=== PATIENT | female | born 1945 | race Caucasian/White ===

== ENCOUNTER → 2016-10-07 | Outpatient (CLI) | payer MEDICARE, BC ==
--- NOTE | 2016-10-07 11:34 | XR ---
EXAMINATION TYPE: XR chest 2V DATE OF EXAM: 10/07/2016 11:17 AM COMPARISON: 10/02/2012 TECHNIQUE: PA and lateral views submitted. HISTORY: Cough, tobacco use, yearly physical FINDINGS: The lungs are clear and there is no pneumothorax, pleural effusion, or focal pneumonia. Chronic rib deformities are seen with biapical pleural thickening greater on the right. Hyperinflation suggests COPD and there are changes of chronic interstitial lung disease. Degenerative change of the spine. Hearn bsegmental changes at the lung base. IMPRESSION: 1. No acute process. Findings are suggestive of COPD and chronic interstitial lung disease. 2. Subsegmental changes posteriorly at the lung base suggestive of atelectasis. Infiltrates less like ly correlate clinically.
== END | disposition home or self-care (01) ==
LOC: RADXRMAIN 10:38
PROVIDERS: ATTEND Physician Assistant
DX: Z87.891 Personal history of nicotine dependence (principal)
CPT/HCPCS: 71020

== ENCOUNTER → 2017-03-03 | Outpatient (CLI) | payer MEDICARE, BC ==
--- NOTE | 2017-03-04 07:32 | ECHOF ---
Referral Reason:R60.9 Edema MEASUREMENTS -------- HEIGHT: 144.8 cm WEIGHT: 84.4 kg BP: RVIDd: 3.3 cm (< 3.3) IVSd: 1.1 cm (0.6 - 1.1) LVIDd: 4.4 cm (3.9 - 5.3) LVPWd: 1.2 cm (0.6 - 1.1) IVSs: 1.9 cm LVIDs: 2.8 cm LVPWs: 1.4 cm LAESV Index (A-L): 29.51 ml/m Ao Diam: 3.5 cm (2.0 - 3.7) AV Cusp: 1.9 cm (1.5 - 2.6) LA Diam: 3.4 cm (2.7 - 3.8) MV EXCURSION: 14.577 mm (> 18.000) MV EF SLOPE: 81 mm/s (70 - 150) EPSS: 0.7 cm MV E Shawn: 0.80 m/s MV DecT: 273 ms MV A Shawn: 0.80 m/s MV E/A Ratio: 1.00 FINDINGS -------- Sinus rhythm. This was a technically adequate study. The left ventricular size is normal. There is mild concentric left ventricular hypertrophy. Overall left ventricular systolic function is normal with, an EF between 60 - 65 %. The right ventricle is normal in size and function. LA is midly dilated 29-33ml/m2. The right atrium is normal in size. Aortic valve is trileaflet and is mildly thickened. There is no evidence of aortic regurgitation. There is no evidence of aortic stenosis. The mitral valve leaflets are mildly thickened. There is trace mitral regurgitation. Trace tricuspid regurgitation present. Right ventricular systolic pressure is normal at < 35 mmHg. There is no evidence of pulmonary hypertension. The pulmonic valve was not well visualized. The aortic root size is normal. Normal inferior vena cava with normal inspiratory collapse consistent with estimated right atrial pressure of 5 mmHg. The pericardium is normal. There is no pericardial effusion. CONCLUSIONS -------- 1. Sinus rhythm. 2. Trace tricuspid regurgitation present. 3. Right ventricular systolic pressure is normal at < 35 mmHg. 4. There is no evidence of pulmonary hypertension. 5. The pulmonic valve was not well visualized. 6. The aortic root size is normal. 7. There is no pericardial effusion. 8. This was a technically adequate study. 9. The left ventricular size is normal. 10. There is mild concentric left ventricular hypertrophy. 11. Overall left ventricular systolic function is normal with, an EF between 60 - 65 %. 12. LA is midly dilated 29-33ml/m2. 13. Aortic valve is trileaflet and is mildly thickened. 14. The mitral valve leaflets are mildly thickened. 15. There is trace mitral regurgitation. STOVE CARRIAGE OPERATOR: Gio Ramirez RDCS
== END | disposition home or self-care (01) ==
LOC: RADECHMAIN 16:07
PROVIDERS: ATTEND Family Medicine
DX: I08.3 Combined rheumatic disorders of mitral, aortic and tricuspid valves (principal)
CPT/HCPCS: 93306

== ENCOUNTER → 2017-11-02 | Outpatient (CLI) | payer MEDICARE, BC ==
--- NOTE | 2017-11-02 13:20 | ECHOS ---
STRESS ECHOCARDIOGRAM DATE OF SERVICE: 11/02/2017 INDICATIONS: Dyspnea. MEDICATIONS: BASELINE HEART RATE: 73 BASELINE BLOOD PRESSURE: 152/78 MAXIMUM HEART RATE: 142 MAXIMUM BLOOD PRESSURE: 183/85 85% MPHR: 126 100% MPHR: 148 METS: 5.3 MAXIMUM STAGE REACHED: II TOTAL EXERCISE TIME: 4 minutes CLINICAL INFORMATION: Patient was exercised for a total period of 4 minutes. Peak heart rate of 142 was achieved. Maximum blood pressure of 183/85 mmHg was noted. The resting EKG shows normal sinus rhythm with ST-T changes suggestive of ischemia versus a strain pattern was noted. There was some mild ST-segment depression noted during exercise. The patient did not complain of any chest pain during the test. The baseline echocardiographic images reveals normal left ventricular chamber size with normal left ventricular systolic function. In the immediate postexercise period, normal increase in the wall thickness and contractility is noted. FINAL IMPRESSION: 1. This stress echocardiographic study is negative for stress-induced ischemia. 2. EKG portion of the stress test is inconclusive due to diagnose ischemia. 3. Patient's exercise tolerance is average. MMODL / IJN: [id number] /
--- NOTE | 2017-11-03 13:33 | MM ---
Reason for exam: additional evaluation requested from prior study. Last mammogram was performed 1 year ago. History: Patient is postmenopausal. Benign excisional biopsy of the right breast, 2013. Took estrogen for 5 years beginning at age 55. Took progesterone for 5 years beginning at age 55. Physical Findings: Nurse did not find any significant physical abnormalities on exam. MG 3D Diag Mammo W/Cad YANG Bilateral CC and MLO view(s) were taken. Prior study comparison: October 28, 2016, mammogram, performed at [facility]. November 21, 2014, mammogram, performed at [facility]. The breast tissue is heterogeneously dense. This may lower the sensitivity of mammography. No suspicious abnormality. Unchanged upper outer focal asymmetry at posterior depth. These results were verbally communicated with the patient and result sheet given to the patient on 11/02/17. ASSESSMENT: Benign, BI-RAD 2 RECOMMENDATION: Routine screening mammogram of both breasts in 1 year.
== END | disposition home or self-care (01) ==
LOC: RADMAMWWP 08:33
PROVIDERS: ATTEND Family Medicine
DX: R92.8 Other abnormal and inconclusive findings on diagnostic imaging of breast (principal)
CPT/HCPCS: 93351; 77066; G0279; 77062

== ENCOUNTER → 2018-10-19 | Outpatient (CLI) | payer MEDICARE, BC ==
--- NOTE | 2018-10-19 09:46 | CT ---
EXAMINATION TYPE: CT sinus wo con DATE OF EXAM: 10/19/2018 COMPARISON: NONE HISTORY: Chronic sinusitis CT DLP: 563.89 mGycm. Automated Exposure Control for Dose Reduction was Utilized. TECHNIQUE: CT scan of the sinuses is performed without contrast, axial images are obtained, coronal r eformatted images are also reviewed. FINDINGS: There is an osseous septum within the inferior right maxillary sinus. The paranasal sinuses are well aerated currently. The visualized portions of the mastoid air cells and middle air cavities are also well aerated. Note is made of mild leftward nasal septal deviation. The frontal recesses and ostiomea perry complexes are patent with very minimal narrowing of the left ostia medial complex due to slight f ocal mucosal thickening. This is marked on series 5 image 32. No significant nasal turbinate mucosal hypertrophy. No Maria R cells or darvin bullosa. Osseous structures are grossly intact. Mild degenerat vera changes of the temporal mandibular joints are seen. Exam is not optimized for evaluation of intra cranial structures. Atherosclerosis is noted of the visualized portions of the intracranial vasculatu re. The orbits are symmetric and grossly unremarkable other than surgical absence of the lenses. Mini mal inspissated secretions are seen within the posterior nasopharynx. IMPRESSION: 1. The sinuses are clear and the ostiomeatal complexes are patent bilaterally. However there is mini mal narrowing of the left ostium renal complex secondary to focal minimal mucosal thickening. 2. Mild leftward nasal septal deviation. 3. No Maria R cells or darvin bullosa. No significant nasal turbinate hypertrophy. 4. Mild degenerative changes of the temporal mandibular joints.
== END | disposition home or self-care (01) ==
LOC: RADCTMAIN 08:07
PROVIDERS: ATTEND Otolaryngology
DX: J34.2 Deviated nasal septum (principal); M26.69 Other specified disorders of temporomandibular joint; J34.89 Other specified disorders of nose and nasal sinuses; J32.9 Chronic sinusitis, unspecified
CPT/HCPCS: 70486

== ENCOUNTER → 2018-12-12 | Outpatient (CLI) | payer MEDICARE, BC ==
--- NOTE | 2018-12-12 15:23 | XR ---
Lumbar spine HISTORY: Sciatica, back pain 3 views of the lumbar spine No comparisons Mineralization is reduced which may limit sensitivity. Lumbar vertebral bodies show preserved height and alignment. There is multilevel spondylosis as well as sclerosis of the posterior elements of the lower lumbar spine. Loss of disc height present at the intervertebral levels, vacuum phenomenon prese nt L4-5. Vascular calcifications are present. IMPRESSION: Correlate for osteoporosis. Degenerative disc disease and facet arthropathy.
== END | disposition home or self-care (01) ==
LOC: RADXRMAIN 10:29
PROVIDERS: ATTEND Family Medicine
DX: M51.16 Intervertebral disc disorders with radiculopathy, lumbar region (principal); M46.96 Unspecified inflammatory spondylopathy, lumbar region
CPT/HCPCS: 72100

== ENCOUNTER → 2018-12-14 | Outpatient (CLI) | payer MEDICARE, BC ==
--- NOTE | 2018-12-14 11:24 | BD ---
EXAMINATION TYPE: Axial Bone Density DATE OF EXAM: 12/14/2018 COMPARISON: NONE CLINICAL HISTORY: 73 YR OLD FEMALE....ICD-10 CODE: M81.0 AGE RELATED OSTEOPOROSIS Height: 66 Weight: 199 FRAX RISK QUESTIONS: History of Fracture in Adulthood: YES Current Tobacco Use: QUIT 3 YRS AGO RISK FACTORS HISTORY OF: RIB FXS AFTER AGE 50 Postmenopausal woman: YES, AT AGE 56 YRS OLD Take estrogen and/or progesterone medications: YES FOR 5 YRS TOTAL MEDICATIONS: Thyroid Medications: YES, SYNTHROID, FOR MANY YRS Additional Medications: VITAMINS Additional History: THRYROID EXAM MEASUREMENTS: Bone mineral densitometry was performed using the maufait System. Bone mineral density as measured about the Lumbar spine is: ----- L1-L4(G/cm2): 1.045 T Score Values are as follows: ----- L1: -1.2 ----- L2: -1.1 ----- L3: -0.7 ----- L4: -1.6 ----- L1-L4: -1.1 Bone mineral density FIRST DEXA SCAN AT [facility] Bone mineral density about the R hip (g/cm2): 0.949 Bone mineral density about the L hip (g/cm2): 0.905 T Score values are as follows: -----R Neck: -0.3 -----L Neck: -0.5 -----R Total: -0.5 -----L Total: -0.8 Bone mineral density FIRST DEXA AT [facility] FRAX%S: THERE IS A 12.4% CHANCE FOR A MAJOR OSTEOPOROTIC FX AND A 1.1% FOR HIP.....PROBABILITY FOR FX IN 10 YRS TIME IMPRESSION: Osteopenia (T Score between -2.5 and -1) with regards to the lumbar spine. There is slightly increased risk of fracture and the patient may be considered for treatment. Re-Screen 2-5 years. NOTE: T-SCORE=SD OF THE YOUNG ADULT MEAN.
== END | disposition home or self-care (01) ==
LOC: RADBDWWP 09:40
PROVIDERS: ATTEND Family Medicine
DX: M85.80 Other specified disorders of bone density and structure, unspecified site (principal)
CPT/HCPCS: 77080

== ENCOUNTER → 2019-02-23 | Outpatient (CLI) | payer MEDICARE, BC ==
--- NOTE | 2019-02-23 14:04 | US ---
EXAMINATION TYPE: US kidneys/renal and bladder DATE OF EXAM: 02/23/2019 COMPARISON: NONE CLINICAL HISTORY: N28.89 Disorder of Kidney, Ureters. Right flank tenderness EXAM MEASUREMENTS: Right Kidney: 10.0 x 4.6 x 4.7 cm Left Kidney: 10.7 x 5.1 x 5.2 cm Right Kidney: no hydronephrosis or masses seen Left Kidney: no hydronephrosis or masses seen Bladder: wnl Bilateral Jets seen: no There is no evidence for hydronephrosis at this point in time. No nephrolithiasis is seen. No bharath s are identified. The urinary bladder is anechoic. Bilateral ureteral jets are seen. Very minimal c ortical renal thinning bilaterally. IMPRESSION: No hydronephrosis nor nephrolithiasis. Very mild cortical renal thinning suggests sequela of chronic medical renal disease.
== END ==
LOC: RADUSWWP 13:08
PROVIDERS: ATTEND Family Medicine
DX: N28.89 Other specified disorders of kidney and ureter (principal)
CPT/HCPCS: 76770

== ENCOUNTER → 2021-12-02 | Outpatient (CLI) | payer MEDICARE, BC ==
--- NOTE | 2021-12-03 07:19 | BD ---
EXAMINATION TYPE: Axial Bone Density DATE OF EXAM: 12/02/2021 COMPARISON: NONE CLINICAL HISTORY: 76 years year old Female. ICD-10 CODE: Z13.820 Encounter for screening for osteopo rosis Height: 5 FT 6 1/2 IN Weight: 194 FRAX RISK QUESTIONS: Alcohol (3 or more units per day): NO Family History (Parent hip fracture): UNKNOWN Glucocorticoids (More than 3mos): NO (Ex: prednisone, prednisolone, methylprednisolone, dexamethasone, and hydrocortisone). History of Fracture in Adulthood: YES Secondary Osteoporosis: 1. Type 1 Diabetes: NO 2. Hyperthyroidism: NO 3. Menopause before 45: NO 4. Malnutrition: NO 5. Chronic liver disease: NO Rheumatoid Arthritis: NO Current Tobacco Use: NO RISK FACTORS HISTORY OF: Surgery to Spine/Hip(right/left)/Wrist (right/left): LUMBAR 2019 Family History of Osteoporosis: NO Active: NO Diet low in dairy products/other sources of calcium: NO Postmenopausal woman: YES Take estrogen and/or progesterone medications: NO Lost more than 2 inches in height since high school: NO Frequent falls: NO Poor Health: GOOD Hyperparathyroidism: NO Adrenal Insufficiency: NO MEDICATIONS: Thyroid Medications: YES Which medication: LEVOTHYROXINE How Lon-3 YEARS Additional Medications: LEVOTHYROXINE, Additional History: EXAM MEASUREMENTS: Bone mineral density about the R hip (g/cm2): 0.966 Bone mineral density about the L hip (g/cm2): 0.997 T Score values are as follows: -----R Neck: -0.5 -----L Neck: -0.3 -----R Total: -0.7 -----L Total: -0.9 PREV UNAVAILABLE Bone mineral density about the L Wrist (g/cm2): 0.620 T Score values are as follows: -----Dist. R+U: -1.1 -----Prox. R+U: -1.3 -----Radius total: 1.5 PREV UNAVAILABLE FRAX%s: The graph provided illustrates a 13.5 % chance for a major osteoporotic fx and a 1.5 % chance for the hips probability for fx in 10 years time. IMPRESSION: Normal (Values between +1 and -1 indicate normal bone mass). Consider repeating this study in 5 year s or sooner if there is some new clinical indication. NOTE: T-SCORE=SD OF THE YOUNG ADULT MEAN.
--- NOTE | 2021-12-04 07:27 | MM ---
Reason for Exam: Screening (asymptomatic). Last mammogram was performed 4 year(s) and 1 month(s) ago. Patient History: Menarche at age 12. First Full-Term at age 21. Postmenopausal. Estrogen for 5 years from age 55 until age 60. Progesterone for 5 years from age 55 until age 60. 2014, Benign Excisional Biopsy on the right side. Risk Values: Reba 5 year model risk: 1.9%. NCI Lifetime model risk: 3.8%. Prior Study Comparison: 11/21/2014 Screening Mammogram, [facility]. 10/28/2016 Screening Mammogram, [facility]. 11/02/2017 Bilateral Diagnostic Mammogram, [facility]. Tissue Density: The breast tissue is heterogeneously dense. This may lower the sensitivity of mammography. Findings: Analyzed By CAD. No suspicious abnormality. Unchanged upper outer focal asymmetry at posterior depth in the right breast. Overall Assessment: Benign, BI-RAD 2 Management: Screening Mammogram of both breasts in 1 year. A clinical breast exam by your physician is recommended on an annual basis and results should be correlated with mammographic findings. Electronically signed and approved by: Diony Chu D.O.
== END | disposition home or self-care (01) ==
LOC: RADBDWWP 13:18
PROVIDERS: ATTEND Family Medicine
DX: Z12.31 Encounter for screening mammogram for malignant neoplasm of breast (principal); M85.89 Other specified disorders of bone density and structure, multiple sites; Z78.0 Asymptomatic menopausal state
CPT/HCPCS: 77063; 77067; 77080

== ENCOUNTER → 2021-12-10 | Outpatient (CLI) | payer MEDICARE, BC ==
[2021-12-10 11:43] LABS: Partial Thromboplastin Time 26.5 sec (22.0-30.0); Prothrombin Time 10.7 sec (9.0-12.0)
[2021-12-10 14:19] LABS: HCT 42.2 % (37.2-46.3); MCH 29.7 pg (27.0-32.0); MCHC 33.2 g/dL (32.0-37.0); MCV 89.4 fL (80.0-97.0); Mean Platelet Volume 9.7 fL (9.5-12.2); NRBC Per 100 WBC 0 /100 WBCS (0.0-0.0); Platelet Count 283 X 10*3/uL (140-440); RBC 4.72 X 10*6/uL (4.10-5.20); RDW 12.5 % (11.5-14.5); WBC 6.26 X 10*3/uL (4.50-10.00)
[2021-12-10 14:24] LABS: Albumin 4.6 g/dL (3.8-4.9); Albumin/Globulin Ratio 1.59 (1.60-3.17); Anion Gap 10.6 mmol/L (10.00-18.00); BUN/Creat Ratio 21.25 Ratio (12.00-20.00); Calcium 9.8 mg/dL (8.7-10.3); Carbon Dioxide 25.4 mmol/L (20.0-27.5); Globulin 2.9 g/dL (1.6-3.3); Non-African American GFR(CKD) 71.6 (60.0-200.0); Potassium 4.2 mmol/L (3.5-5.5); Total Bilirubin 0.8 mg/dL (0.30-1.20); Total Protein 7.5 g/dL (6.2-8.2)
[2021-12-10 15:54] LABS: Appearance,Urine Clear (Clear); Bilirubin,Urine Negative (Negative); Blood,Urine Negative (Negative); Color,Urine Yellow (Yellow); Ketones,Urine Negative (Negative); Nitrite,Urine Negative (Negative); PH, Urine 5.5 (5.0-8.0); Specific Gravity,Urine 1.018 (1.001-1.030)
[2021-12-10 16:01] LABS: Bacteria,Urine 1+ /HPF (None Seen)
== END | disposition home or self-care (01) ==
LOC: LABPAT 08:45
PROVIDERS: ATTEND Orthopaedic Surgery
DX: Z01.812 Encounter for preprocedural laboratory examination (principal); M16.12 Unilateral primary osteoarthritis, left hip
CPT/HCPCS: 80053; 81001; 85027; 85610; 85730; 87070

== ENCOUNTER 2021-12-21 07:16 | Day surgery (SDC) | payer MEDICARE, BC ==
[~2021-12-21 07:16] MED LIST: ACETAMINOPHEN TAB 500 MG TAB PO PRN; GABAPENTIN 300 MG CAP PO PRN; LIDOCAINE 1% (10MG/ML) FOR IV START INTRADERMA PRN; MELOXICAM 7.5 MG TAB PO PRN; ONDANSETRON 4 MG/2 ML VIAL IVP ONE; TRANEXAMIC ACID IN NACL,ISO-OS 1,000 MG in SALINE 1 100ML.BAG IVPB PRN
[2021-12-21] MEDS: LACTATED RINGERS 1,000 ML IV SCH (08:12)
[2021-12-21] MEDS ORDERED: PROPOFOL 10 MG/ML 20 ML VIAL IV ONE (09:09)
[2021-12-21] MEDS ORDERED: TRANEXAMIC ACID IN NACL,ISO-OS 1,000 MG/100 ML BAG ONE (09:09)
[2021-12-21] MEDS ORDERED: fentaNYL (PF) 50 MCG/ML 2 ML AMP ONE (09:09)
[2021-12-21] MEDS ORDERED: MIDAZOLAM 2 MG/2 ML VIAL ONE (09:09)
[2021-12-21] MEDS ORDERED: ePHEDrine 50 MG/ML 1 ML VIAL ONE (09:09)
[2021-12-21] MEDS ORDERED: ceFAZolin 1,000 MG in SODIUM CHLORIDE 0.9% 1,000 ML IRRIGATION ONE (09:14)
[2021-12-21] MEDS ORDERED: ROPIVACAINE 5 MG/ML 30 ML VIAL MISCELLANE ONE ×2 (09:40→10:23)
--- NOTE | 2021-12-21 10:30 | P.OP ---
Date of Procedure: 12/21/21 Preoperative Diagnosis: Severe osteoarthritis left hip Postoperative Diagnosis: Severe osteoarthritis left hip Procedure(s) Performed: Left total hip arthroplasty a direct anterior approach Implants: [employer] Polarstem standard size 6 collar [employer] R3, 3 hole hemispherical acetabular shell, 52 mm [employer] Reflection 6.5 mm cancellus screw, 20 mm, 25 mm [employer] R3, XLPE 20 acetabular liner [employer] Oxinium femoral head 36 m, -3 All components were press-fit. The articulation is Oxinium on polyethylene. Anesthesia: spinal Surgeon: Rodrigo Deshpande Meter Technician #1: Patrick Melendez Estimated Blood Loss (ml): 350 Pathology: other (Femoral head) Condition: stable Disposition: PACU Indications for Procedure: After failure of conservative treatment we discussed the surgical and nonsur gical treatment options at length. Patient wishes to proceed with a total hip arthroplasty with a direct anterior approach. Complications specific to this procedure were discussed at length, including but not limited to infection, leg length discrepancy, dislocation, nerve injury, and fracture. Covid-19 was also discussed at length with the patient, and they are aware of the current policies and procedures. The patient was given the option of delaying surgery, but they elect to proceed knowing these risks. Patient is aware of all these complications and informed consent was obtained Operative Findings: The operative findings are consistent with severe osteoarthritis of the left hip Description of Procedure: Patient was seen and evaluated in the preoperative area and the consent was reviewed. The operative site was marked with a skin marker. The patient was then brought to the operating room and given preoperative antibiotics intravenously. 1 g of Tranexamic acid was also given intravenously. A spinal anesthetic was administered by the anesthesia department. The patient was then placed on the [place] table with the bony prominences well-padded. The hip area was then prepped with a ChloraPrep solution and draped in the usual sterile fashion. A universal timeout was then performed, which confirmed the patient's name, surgical site, ALLERGIES, and procedure being performed on the consent. Next the incision site was located at 1 cm distal and 2 cm lateral to the anterior superior iliac spine. The skin and subcutaneous tissues were sharply incised. Incision was carefully dissected down to the fascia overlying the tensor fascia caro muscle. This fascia was then incised in line with the incision. Care was taken to stay laterally in order to avoid injuring the lateral femoral cutaneous nerve. Next, using blunt finger dissection, the tensor fascia caro muscle was dissected off its investing fascia. The muscle was then carefully retracted laterally with a cobra retractor over the lateral neck of the femur. Next, the circumflex vessels were identified and cauterized using the AquaMantis device. The anterior hip capsule was then exposed. The capsule was then opened and an inverted T fashion. Cobra retractors were then placed intracapsularly. The retractors were maintained intracapsular throughout the procedure. The proximal femur was then visualized. Fluoroscopic x-rays were then taken in order to evaluate the preoperative leg lengths. A small amount of traction was placed on the leg. The femoral neck was then osteotomized at the appropriate level above the lesser trochanter. A small wedge of bone was then removed from the remaining femoral head. Next, using a corkscrew the femoral head was removed from the acetabulum. On gross visual inspection, the femoral head had complete loss of articular cartilage and multiple periarticular osteophytes. The femoral head was then measured. Attention was then turned to the acetabulum. The acetabulum was exposed and any remaining labrum was excised. Sequential reaming of the acetabulum was performed using fluoroscopic guidance until there was a good bed of bleeding cancellus bone. When the appropriate size was reached, a trial was then placed. The position and fit of the trial was checked with fluoroscopy. The trial was then removed. Then, using fluoroscopic guidance, the final implant was impacted at 20 of anteversion and 40 of abduction, and fully seated in the acetabulum. 2 screws were then placed in the acetabulum. Again fluoroscopy was used to check position of the screws. Next, the liner was then impacted, with a 20 elevated liner located in the anterior superior quadrant. Component locking was confirmed. Attention was then directed to the femur. With the aid of the [place] table, the femur was externally rotated to approximately 130, extended, and adducted under the opposite leg. A side hook was then placed under the proximal femur, and the side hook elevator was used to elevate the proximal femur while releasing the capsule. Retractors were then placed. A capsular release was performed, as well as a release of the conjoined tendon, which afforded excellent visualization of the proximal femur. Next, a box osteotome was used to lateralize the proximal femur. A hand roller engraver was then used to locate the femoral canal. Sequential broaching was then performed with appropriate size which afforded excellent fixation in the proximal femur. A trial was then placed with appropriate head and neck, and the hip was gently reduced with the aid of the [place] table. Fluoroscopy was then used to check position of the components, as well as to ensure equal leg lengths. The hip was then gently dislocated and the trials were then removed. Final implants were then impacted and the hip was again reduced. Final fluoroscopic x-rays confirmed that the components were in anatomic position, as well as equal leg lengths. The hip was also taken through range of motion, and found to be stable. The hip was then copiously irrigated with antibiotic solution with pulsatile lavage. The hip was then irrigated with Irrisept solution. The soft tissues were then injected with a ropivacaine solution. A second dose of 1 g of Tranexamic acid was also given intravenously. The fascia was then closed with 2-0 strata fix suture. The subcutaneous tissue was closed with 3-0 Vicryl. The subcuticular tissue was closed with 3-0 strata fix suture. The skin was then closed with Exofin skin glue. After the glue and dried, and Optifoam silver impregnated dressing was applied. The patient was then transferred to the recovery room in stable condition. The clinical trials assistant OLIMPIA Gavin was required due to the complexity of surgery, and the need for skilled surgical supply assistant for positioning, draping, exposure, retraction, and closure of the wound.
--- NOTE | 2021-12-21 10:38 | FL ---
EXAMINATION TYPE: FL guidance operating room, XR Hip Limited LT DATE OF EXAM: 12/21/2021 CLINICAL HISTORY: Left hip pain and osteoarthritis. TECHNIQUE: Fluoroscopy. Limited intraoperative views left hip. COMPARISON: None. FINDINGS: Fluoroscopic guidance was provided during left hip replacement procedure performed by Dr. Deshpande. A total of 45 seconds of fluoroscopic time was utilized during the procedure and 3 spot im ages was acquired. Intraoperative images show metallic hardware from total left hip arthroplasty satisfactory in positio n on frontal projection. IMPRESSION: As Above.
[2021-12-21] MEDS ORDERED: HYDROcodone/APAP 5-325MG 1 EACH TAB PO PRN (10:57)
[2021-12-21] MEDS ORDERED: HYDROmorphone 0.5 MG/0.5 ML SYRINGE IVP PRN ×2 (10:57)
[2021-12-21] MEDS ORDERED: ONDANSETRON 4 MG/2 ML VIAL IVP PRN (10:57)
[2021-12-21] MEDS ORDERED: NALOXONE 0.4 MG/ML 1 ML VIAL IV PRN (10:57)
[2021-12-21] MEDS ORDERED: hydrOXYzine pamoate 25 MG CAP PO PRN (10:57)
--- NOTE | 2021-12-21 11:27 | XR ---
Limited left hip HISTORY: Status post left hip arthroplasty Single frontal view of the left hip Patient is status post left hip arthroplasty. There is anatomic alignment. Lucencies present within t he soft tissues. IMPRESSION: Orthopedic follow-up.
[2021-12-21] MEDS: fentaNYL (PF) 50 MCG/ML 2 ML AMP IV PRN ×2 (12:01→13:37)
[2021-12-21] MEDS ORDERED: LACTATED RINGERS 1,000 ML IV ONE (12:41)
[2021-12-21] MEDS: HYDROcodone/APAP 5-325MG 1 EACH TAB PO PRN ×2 (13:50→21:27)
[2021-12-21] MEDS: HYDROmorphone 0.5 MG/0.5 ML SYRINGE IVP PRN (15:28)
[2021-12-21] MEDS: ASPIRIN 325 MG TAB PO SCH (21:27)
[2021-12-21] MEDS: SENNOSIDES-DOCUSATE SODIUM 1 EACH TAB PO SCH (21:27)
[2021-12-22] MEDS: HYDROmorphone 0.5 MG/0.5 ML SYRINGE IVP PRN (01:41)
[2021-12-22] MEDS: LEVOTHYROXINE 75 MCG TAB PO SCH ×2 (06:09→11:38)
[2021-12-22 08:48] LABS: Basophils # (A) 0.03 X 10*3/uL (0.00-0.10); Basophils % (A) 0.4 %; Eosinophils # (A) 0.02 X 10*3/uL (0.04-0.35); Eosinophils % (A) 0.3 %; HCT 32.6 % (37.2-46.3); HGB 11.1 g/dL (12.0-15.0); Immature Grans, Automated 0.3 %; Lymphocytes # (A) 1.05 X 10*3/uL (0.90-5.00); Lymphocytes % (A) 13.3 %; MCH 30.3 pg (27.0-32.0); MCV 89.1 fL (80.0-97.0); Mean Platelet Volume 9.7 fL (9.5-12.2); Monocytes # (A) 0.67 X 10*3/uL (0.20-1.00); Monocytes % (A) 8.5 %; NRBC Per 100 WBC 0 /100 WBCS (0.0-0.0); Neutrophils # (A) 6.12 X 10*3/uL (1.80-7.70); Neutrophils % (A) 77.2 %; Platelet Count 216 X 10*3/uL (140-440); RBC 3.66 X 10*6/uL (4.10-5.20); RDW 12.6 % (11.5-14.5); WBC 7.91 X 10*3/uL (4.50-10.00)
[2021-12-22] MEDS ORDERED: CYCLOBENZAPRINE 5 MG TAB PO PRN (08:50)
[2021-12-22] MEDS: LACTATED RINGERS 1,000 ML IV SCH (09:24)
--- NOTE | 2021-12-22 10:34 | P.PN ---
Subjective Progress Note Date: 12/22/21 This patient is a 76-year-old female who is status-post left direct anterior total hip arthroplasty on 12/21/[address] Deshpande. Patient is examined bedside this morning. She is currently up with physical therapy. She states she is experiencing moderate pain in the left hip. She was experiencing nausea last night although this has resolved. She is tolerating her diet well. She is otherwise feeling well and denies chest pain, shortness of breath, vomiting. Vital signs stable. Objective - Vital Signs Vital signs: Vital Signs Temp 98.3 F 12/22/21 01:07 Pulse 69 12/22/21 01:07 Resp 17 12/22/21 01:07 BP 132/77 12/22/21 01:07 Pulse Ox 94 L 12/22/21 01:07 FiO2 Intake & Output 12/21/21 12/22/21 12/22/21 18:59 06:59 18:59 Intake Total 1351 Output Total 350 Balance 1001 Weight 87.8 kg Intake: IV 1351 Output: Estimated Blood Loss 350 Other: Voiding Method Toilet # Voids 1 3 - Exam On examination, patient is sitting up in the bedside chair in no apparent distress. She is alert and orientated x 3. On inspection of the left hip, there is a clean, dry, and intact Optifoam dressing in place. No bleeding or drainage to the dressing. There is mild swelling of the thigh, the thigh is soft and compressible. Motor and sensory function is intact of the left lower extremity. The dorsalis pedis pulses easily palpable, the left lower extremity is warm and well perfused. Calf is nontender. - Labs CBC & Chem 7: 12/22/21 05:50 Labs: Abnormal Lab Results - Last 24 Hours (Table) 12/22/21 Range/Units 05:50 RBC 3.66 L (4.10-5.20) X 10*6/uL Hgb 11.1 L (12.0-15.0) g/dL Hct 32.6 L (37.2-46.3) % Eosinophils # 0.02 L (0.04-0.35) X 10*3/uL Assessment and Plan Assessment: Status-post direct anterior left total hip arthroplasty 12/21/21. Post-operative day #1. Plan: - Weight-bear to tolerance on the left lower extremity with a walker. - Physical therapy for gait and balance training. - Keep Optifoam dressing in place. - Pain management as needed. Discontinue use of IV Dilaudid due to nausea. Flexeril added. - Internal medicine consult for perioperative medical management. - Aspirin 325mg BID x 4 weeks for DVT prophylaxis. - Anticipate discharge home tomorrow with home health care.
[2021-12-22] MEDS: ASPIRIN 325 MG TAB PO SCH ×2 (11:20→19:41)
[2021-12-22] MEDS: FERROUS SULFATE 325 MG TAB PO SCH (11:20)
[2021-12-22] MEDS: CHOLECALCIFEROL 25 MCG (1000 IU) TABLET PO SCH (11:21)
[2021-12-22] MEDS: ASCORBIC ACID 500 MG TAB PO SCH (11:22)
[2021-12-22] MEDS: TIMOLOL 0.5% OPHTH DROPS 5 ML BTL RIGHT EYE SCH (11:22)
[2021-12-22] MEDS: MULTIVITAMINS, THERA 1 EACH TAB PO SCH (11:22)
[2021-12-22] MEDS: ZINC SULFATE 220 MG CAP PO SCH (11:23)
[2021-12-22] MEDS ORDERED: ONDANSETRON 4 MG/2 ML VIAL IVP PRN (12:46)
--- NOTE | 2021-12-22 12:54 | P.CONS ---
History of Present Illness - Reason for Consult Consult date: 12/22/21 Medical management postoperative left hip arthroplasty - History of Present Illness This is a pleasant 76-year-old female who was recently admitted under orthopedic services and underwent left hip arthroplasty anterior approach postoperative day 1 and has been up and working with physical therapy. Patient feeling a little nauseated most likely a component of narcotic pain medications and will adjust. Patient follows with Dr. Barton in the outpatient setting for osteoarthritis and hypothyroidism and takes Synthroid daily. Vital signs are stable. Patient had a CBC done today which showed a WBC of 7.91 and hemoglobin is 11.1 and platelets are 216. Patient is afebrile and denies chest pain or shortness of breath. Patient has incentive spirometer at the bedside and encourage the patient to continue using at least 10 times every hour while awake. Encouraged increase activity as tolerated and continue with restrictions per orthopedics. Surgical site is dry with minimal swelling and no surrounding redness noted of the left hip. Review Of Systems: Constitutional: No fever, no chills, no night sweats. No weight change. No weakness, fatigue or lethargy. No daytime sleepiness. EENT: No headache. No blurred vision or double vision, no loss of vision. No loss of Hearing, no ringing in the ears, no dizziness. No nasal drainage or congestion. No epistaxis. No sore throat. Lungs: No shortness of breath, cough, no sputum production. No wheezing. Cardiovascular: No chest pain, no lower extremity edema. No palpitations. No paroxysmal nocturnal dyspnea. No orthopnea. No lightheadedness or dizziness. No syncopal episodes. Abdominal: No abdominal pain. Reports mild nausea, no reports of vomiting. No diarrhea. No constipation. No bloody or tarry stools.. No loss of appetite. Reports not passing much gas although belching and no bowel movement yet Genitourinary: No dysuria, increased frequency, urgency. No urinary retention. Musculoskeletal: No myalgias. No muscle weakness, no gait dysfunction, no frequent falls. No back pain. No neck pain. Reports left hip discomfort Integumentary: No wounds, no lesions. No rash or pruritus. No unusual bruising. No change in hair or nails. Neurologic: No aphasia. No facial droop. No change in mentation. No head injury. No headache. No paralysis. No paresthesia. Psychiatric: No depression. No anxiety. No mood swings. Endocrine: No abnormal blood sugars. No weight change. No excessive sweating or thirst. No cold intolerance. PHYSICAL EXAMINATION: GENERAL: The patient is alert and oriented x4, Well developed, well nourished. Obese. HEENT: Pupils are round and equally reacting to light. EOMI. no scleral icterus. No conjunctival pallor. Normocephalic, atraumatic. No pharyngeal erythema. No thyromegaly. CARDIOVASCULAR: S1 and S2 muffled PULMONARY: diminished breath sounds bilaterally with no wheezing or rhonchi noted. ABDOMEN: soft. Nontender on exam. obese. non-distended, normoactive bowel sounds. No palpable organomegaly. MUSCULOSKELETAL: No joint swelling or deformity. EXTREMITIES: No cyanosis, clubbing, or pedal edema. Left hip surgical dressing is dry and there is some noted curling of the dressing at the fold of her abdomen and groin area no surrounding redness and minimal swelling noted NEUROLOGICAL: Gross neurological examination did not reveal any focal deficits. SKIN: No rashes. Assessment: Status post left total hip arthroplasty Osteoarthritis Hypothyroidism Obesity with a BMI of 30.3 GI prophylaxis DVT prophylaxis Full code Plan: Recommend to continue with current medications and management per orthopedic services. Patient is postop day #1 status post left direct anterior total hip arthroplasty with Dr. Deshpande and has worked with physical therapy. Patient having some intermittent nausea which appears to be a component of narcotic medications and recommend the patient to continue with Tylenol extra strength and muscle relaxers and limit the use of [place] for severe pain and try taking half a tab as this is making her nauseated and loopy feeling. Patient's home me dications of Synthroid have been resumed and encourage the patient to follow-up with Dr. Barton on discharge in the outpatient setting. Patient with incentive spirometer at the bedside encourage the patient to continue using at least 10 times every hour while awake. Patient passing minimal gas mostly belching with no reported bowel movement yet and encourage the patient to increase activity as tolerated and walk more often. CBC reviewed from today and within normal limits. Patient reports possible discharge home tomorrow. We will continue to follow with orthopedics during hospitalization. Thank you for this consultation. The impression and plan of care has been dictated by Nicolle Forrest, nurse practitioner as directed. Dr. Milena MD I have performed a history and examination and MDM of this patient, discussed the same with the dictator, and agree with the dictator's assessment and plan as written ,documented as a scribe. Based on total visit time, I have performed more than 50% of the visit. Any additional findings or plans will be noted. Past Medical History Past Medical History: Osteoarthritis (OA), Thyroid Disorder History of Any Multi-Drug Resistant Organisms: None Reported Past Surgical History: Appendectomy, Back Surgery Additional Past Surgical History / Comment(s): dental implants Past Anesthesia/Blood Transfusion Reactions: No Reported Reaction Additional Past Anesthesia/Blood Transfusion Reaction / Comm: pt. adopted Past Psychological History: No Psychological Hx Reported Smoking Status: Former smoker Past Alcohol Use History: Rare Additional Past Alcohol Use History / Comment(s): quit smoking 7 yrs. ago, smoked 52 yrs. 1ppd Past Drug Use History: None Reported - Past Family History Son(s) Family Medical History: Deep Vein Thrombosis (DVT) Medications and Allergies Home Medications Medication Instructions Recorded Confirmed Type Ascorbic Acid [Vitamin C] 500 mg PO DAILY 12/15/21 12/21/21 History Cholecalciferol [Vitamin D3 (25 25 mcg PO DAILY 12/15/21 12/21/21 History Mcg = 1000 Iu)] Ferrous Sulfate [Feosol] 325 mg PO DAILY 12/15/21 12/21/21 History Ibuprofen [Motrin Ib] 200 - 400 mg PO Q6H PRN 12/15/21 12/21/21 History Levothyroxine Sodium [Synthroid] 75 mcg PO DAILY 12/15/21 12/21/21 History Multivitamins, Thera [Multivitamin 1 tab PO DAILY 12/15/21 12/21/21 History (formulary)] Naproxen Sodium [Aleve] 220 mg PO BID PRN 12/15/21 12/21/21 History Timolol 0.5% Ophth Soln [Timoptic 1 drop RIGHT EYE DAILY 12/15/21 12/21/21 History 0.5% Ophth Soln] Zinc 50 mg PO DAILY 12/15/21 12/21/21 History Aspirin 325 mg PO DAILY 30 Days #60 tab 12/21/21 Rx Celecoxib [CeleBREX] 200 mg PO DAILY #30 cap 12/21/21 Rx HYDROcodone/APAP 7.5-325MG [[place] 1 - 2 tab PO Q6HR PRN 7 Days #32 12/21/21 Rx 7.5-325] tab Ondansetron Odt [Zofran Odt] 4 mg PO Q8HR PRN #14 tab 12/21/21 Rx Sennosides-Docusate Sodium 1 tab PO BID #60 tablet 12/21/21 Rx [Senokot-S] Allergies Allergy/AdvReac Type Severity Reaction Status Date / Time codeine AdvReac Nausea & Verified 12/21/21 07:44 Vomiting Physical Exam Vitals: Vital Signs Temp Pulse Resp BP BP Pulse Ox 12/22/21 01:07 98.3 F 69 17 132/77 94 L 12/21/21 19:09 97.8 F 64 16 126/66 92 L 12/21/21 15:20 98.4 F 59 L 20 153/76 97 12/21/21 14:45 63 16 137/79 97 12/21/21 14:30 97 16 150/69 98 12/21/21 14:00 51 L 16 150/53 97 12/21/21 13:50 54 L 16 151/70 97 12/21/21 13:35 54 L 18 155/65 99 12/21/21 13:21 53 L 18 165/66 97 12/21/21 13:05 48 L 18 149/60 98 12/21/21 12:50 58 L 18 167/62 98 12/21/21 12:32 50 L 18 153/57 92 L 12/21/21 12:15 51 L 16 163/58 94 L 12/21/21 12:00 60 16 159/60 95 12/21/21 11:45 54 L 16 138/52 98 12/21/21 11:30 53 L 16 131/59 98 12/21/21 11:15 55 L 16 136/59 95 12/21/21 11:00 54 L 16 141/69 97 12/21/21 10:53 98.4 F 58 L 16 143/66 97 Intake and Output 12/21/21 12/22/21 12/22/21 22:59 06:59 14:59 Other: Voiding Method Toilet # Voids 1 3 Weight 87.8 kg Results CBC & Chem 7: 12/22/21 05:50 Labs: Abnormal Lab Results - Last 24 Hours (Table) 12/22/21 Range/Units 05:50 RBC 3.66 L (4.10-5.20) X 10*6/uL Hgb 11.1 L (12.0-15.0) g/dL Hct 32.6 L (37.2-46.3) % Eosinophils # 0.02 L (0.04-0.35) X 10*3/uL
[2021-12-22] MEDS: ACETAMINOPHEN TAB 500 MG TAB PO SCH ×2 (13:45→18:06)
[2021-12-22] MEDS: SENNOSIDES-DOCUSATE SODIUM 1 EACH TAB PO SCH (19:41)
[2021-12-23] MEDS: ACETAMINOPHEN TAB 500 MG TAB PO SCH ×5 (00:15→17:57)
[2021-12-23] MEDS: LACTATED RINGERS 1,000 ML IV SCH (06:53)
[2021-12-23] MEDS ORDERED: bisacodyL 5 MG TABLET.DR PO PRN (08:27)
[2021-12-23] MEDS: LEVOTHYROXINE 75 MCG TAB PO SCH (08:29)
[2021-12-23] MEDS: FERROUS SULFATE 325 MG TAB PO SCH (08:29)
[2021-12-23] MEDS: MULTIVITAMINS, THERA 1 EACH TAB PO SCH (08:29)
[2021-12-23] MEDS: ASCORBIC ACID 500 MG TAB PO SCH (08:29)
[2021-12-23] MEDS: ASPIRIN 325 MG TAB PO SCH ×2 (08:29→20:41)
[2021-12-23] MEDS: CHOLECALCIFEROL 25 MCG (1000 IU) TABLET PO SCH (08:29)
[2021-12-23] MEDS: TIMOLOL 0.5% OPHTH DROPS 5 ML BTL RIGHT EYE SCH (08:30)
[2021-12-23] MEDS: ZINC SULFATE 220 MG CAP PO SCH (08:30)
[2021-12-23] MEDS: HYDROcodone/APAP 5-325MG 1 EACH TAB PO PRN ×2 (08:37→20:42)
--- NOTE | 2021-12-23 12:29 | XR ---
EXAMINATION TYPE: XR chest 2V DATE OF EXAM: 12/23/2021 COMPARISON: Chest x-ray 10/07/2016 HISTORY: Pneumonia TECHNIQUE: Frontal and lateral views of the chest are obtained. FINDINGS: There is no focal air space opacity, pleural effusion, or pneumothorax seen. The cardiac silhouette size is within normal limits. Aorta is dense. Prominent lung volumes suggest underlying CO PD. There is bronchial wall thickening present. Interstitium is increased. The osseous structures are table, healed right-sided rib fractures are again noted. There is biapical pleural thickening. IMPRESSION: Findings again consistent with possible COPD, chronic interstitial lung disease, correlat e for bronchitis, reactive airways disease, follow-up as indicated.
[2021-12-23 13:52] LABS: Appearance,Urine Cloudy (Clear); Bilirubin,Urine Negative (Negative); Blood,Urine Negative (Negative); Color,Urine Dark Yellow; Glucose,Urine (UA) Negative (Negative); Ketones,Urine Trace (Negative); Leukocyte Esterase,Urine Moderate (Negative); Mucus,Urine Moderate /hpf; Nitrite,Urine Negative (Negative); PH, Urine 5.5 (5.0-8.0); Protein,Urine 1+ (Negative); Specific Gravity,Urine 1.035 (1.001-1.035); Squamous Epithelial Cell,Urine 6 /hpf (0-4); WBC,Urine 12 /hpf (0-5)
[2021-12-23] MEDS ORDERED: NA PHOS,M-B/NA PHOS,DI-BA 133 ML ENEMA RECTAL PRN (15:38)
[2021-12-23] MEDS ORDERED: bisacodyL 10 MG SUPP RECTAL PRN (15:38)
[2021-12-23] MEDS ORDERED: ALBUTEROL NEBULIZED 2.5 MG/3 ML INHALATION PRN (15:45)
--- NOTE | 2021-12-23 15:46 | P.PN ---
Subjective Progress Note Date: 12/23/21 - Reason for Consult Consult date: 12/22/21 Medical management postoperative left hip arthroplasty - History of Present Illness This is a pleasant 76-year-old female who was recently admitted under orthopedic services and underwent left hip arthroplasty anterior approach postoperative day 1 and has been up and working with physical therapy. Patient feeling a little nauseated most likely a component of narcotic pain medications and will adjust. Patient follows with Dr. Barton in the outpatient setting for osteoarthritis and hypothyroidism and takes Synthroid daily. Vital signs are stable. Patient had a CBC done today which showed a WBC of 7.91 and hemoglobin is 11.1 and platelets are 216. Patient is afebrile and denies chest pain or shortness of breath. Patient has incentive spirometer at the bedside and encourage the patient to continue using at least 10 times every hour while awake. Encouraged increase activity as tolerated and continue with restrictions per orthopedics. Surgical site is dry with minimal swelling and no surrounding redness noted of the left hip. 12/23/2021 Patient is seen and evaluated in follow-up this morning continues to have some mild abdominal discomfort and feels constipated. Patient was started on Senokot and have ordered a suppository and laxative as needed. Encourage the patient to increase activity as tolerated and also encouraged the patient to continue with oral intake. Patient reports she is passing gas and there is positive bowel sounds noted on exam. Patient is afebrile denies any chest pain or shortness of breath. Patient continues to have some pain in the left hip. Patient also with low-grade temps throughout the night and will obtain urinalysis and a chest x- ray. Encouraged incentive spirometer use at least 10 times every hour while awake. Patient denies nausea or vomiting and is tolerating diet. Patient denies chest pain or palpitations at this time along with also denying any shortness of breath. Review of systems: Constitutional: No reports of fatigue, fever, or chills Cardiovascular: No reports of chest pain or palpitations Respiratory: No reports of shortness of breath or cough GI: No reports of nausea, vomiting, or diarrhea, reports passing gas but no bowel movement and feels constipated : No reports of dysuria or retention Neurovascular: No reports of weakness or numbness, reports left hip pain All medications have been reviewed Active Medications Acetaminophen (Acetaminophen Tab 500 Mg Tab) 500 mg PO Q6HR ORI Last Admin: 12/23/21 12:22 Dose: 500 mg Hydrocodone Bitart/Acetaminophen (Hydrocodone/Apap 5-325mg 1 Each Tab) 1 each PO Q6HR PRN PRN Reason: Pain Scale 1 to 5 Stop: 01/20/22 10:58 Last Admin: 12/23/21 08:37 Dose: 1 each Hydrocodone Bitart/Acetaminophen (Hydrocodone/Apap 5-325mg 1 Each Tab) 2 each PO Q6HR PRN PRN Reason: Pain Scale 6 to 10 Stop: 01/20/22 10:58 Last Admin: 12/22/21 06:09 Dose: 2 each Ascorbic Acid (Ascorbic Acid 500 Mg Tab) 500 mg PO DAILY [facility] Last Admin: 12/23/21 08:29 Dose: 500 mg Aspirin (Aspirin 325 Mg Tab) 325 mg PO BID [facility] Stop: 01/20/22 21:01 Last Admin: 12/23/21 08:29 Dose: 325 mg Bisacodyl (Bisacodyl 5 Mg Tablet.Dr) 5 mg PO DAILY PRN PRN Reason: Constipation Last Admin: 12/23/21 08:37 Dose: 5 mg Bisacodyl (Bisacodyl 10 Mg Supp) 10 mg RECTAL ONCE PRN PRN Reason: Constipation Cholecalciferol (Cholecalciferol 25 Mcg (1000 Iu) Tablet) 25 mcg PO DAILY [facility] Last Admin: 12/23/21 08:29 Dose: 25 mcg Cyclobenzaprine HCl (Cyclobenzaprine 5 Mg Tab) 5 mg PO TID PRN PRN Reason: Muscle Spasm Last Admin: 12/22/21 12:32 Dose: 5 mg Ferrous Sulfate (Ferrous Sulfate 325 Mg Tab) 325 mg PO DAILY [facility] Last Admin: 12/23/21 08:29 Dose: 325 mg Hydromorphone HCl (Hydromorphone 0.5 Mg/0.5 Ml Syringe) 0.5 mg IVP Q3HR PRN PRN Reason: Pain Scale 7 to 10 Stop: 01/20/22 10:58 Last Admin: 12/22/21 01:41 Dose: 0.5 mg Hydromorphone HCl (Hydromorphone 0.5 Mg/0.5 Ml Syringe) 0.125 mg IVP Q3HR PRN PRN Reason: Pain Scale 1 to 3 Stop: 01/20/22 10:58 Hydromorphone HCl (Hydromorphone 0.5 Mg/0.5 Ml Syringe) 0.25 mg IVP Q3HR PRN PRN Reason: Pain Scale 4 to 6 Stop: 01/20/22 10:58 Hydroxyzine Pamoate (Hydroxyzine Pamoate 25 Mg Cap) 25 mg PO Q4HR PRN PRN Reason: Nausea, Anxiety, Pain Control Stop: 01/20/22 10:58 Levothyroxine Sodium (Levothyroxine 75 Mcg Tab) 75 mcg PO DAILY [facility] Last Admin: 12/23/21 08:29 Dose: 75 mcg Lidocaine HCl (Lidocaine 1% (10mg/Ml) For Iv Start) 0.1 ml INTRADERMA PER PROTOCOL PRN PRN Reason: IV Start Stop: 01/20/22 06:30 Last Admin: 12/21/21 08:10 Dose: 0.1 ml Multivitamins (Multivitamins, Thera 1 Each Tab) 1 each PO DAILY [facility] Last Admin: 12/23/21 08:29 Dose: 1 each Naloxone HCl (Naloxone 0.4 Mg/Ml 1 Ml Vial) 0.2 mg IV Q2M PRN PRN Reason: Opioid Reversal Stop: 01/20/22 10:58 Ondansetron HCl (Ondansetron 4 Mg/2 Ml Vial) 4 mg IVP Q6HR PRN PRN Reason: Nausea And Vomiting Stop: 01/20/22 10:58 Senna/Docusate Sodium (Sennosides-Docusate Sodium 1 Each Tab) 2 each PO HS [facility] Stop: 01/20/22 21:01 Last Admin: 12/22/21 19:41 Dose: 2 each Sodium Biphosphate/Sodium Phosphate (Na Phos,M-B/Na Phos,Di-Ba 133 Ml Enema) 133 ml RECTAL ONCE PRN PRN Reason: Constipation Timolol Maleate (Timolol 0.5% Ophth Drops 5 Ml Btl) 1 drops RIGHT EYE DAILY [facility] Last Admin: 12/23/21 08:30 Dose: 1 drops Zinc Sulfate (Zinc Sulfate 220 Mg Cap) 220 mg PO DAILY [facility] Last Admin: 12/23/21 08:30 Dose: 220 mg PHYSICAL EXAMINATION: GENERAL: The patient is alert and oriented x4, Well developed, well nourished. Obese. HEENT: Pupils are round and equally reacting to light. EOMI. no scleral icterus. No conjunctival pallor. Normocephalic, atraumatic. No pharyngeal erythema. No thyromegaly. CARDIOVASCULAR: S1 and S2 muffled PULMONARY: diminished breath sounds bilaterally with no wheezing or rhonchi noted. ABDOMEN: soft. Nontender on exam. obese. non-distended, normoactive bowel sounds. No palpable organomegaly. MUSCULOSKELETAL: No joint swelling or deformity. EXTREMITIES: No cyanosis, clubbing, or pedal edema. Left hip surgical dressing is dry with no surrounding redness and minimal swelling noted NEUROLOGICAL: Gross neurological examination did not reveal any focal deficits. SKIN: No rashes. Assessment: Status post left total hip arthroplasty Fevers, unknown etiology will obtain urinalysis and chest x-ray Osteoarthritis Hypothyroidism Obesity with a BMI of 30.3 GI prophylaxis DVT prophylaxis Full code Plan: Recommend to continue with current medications and management per orthopedic services. Patient is postop day #2 status post left direct anterior total hip arthroplasty with Dr. Deshpande and has worked with physical therapy. Patient having some low-grade temps last night and will obtain urinalysis and chest x- ray and encourage incentive spirometer use and increased activity as tolerated. Patient continues to have some left hip pain and has been working with physical therapy today. Patient also reporting no bowel movement as of yet and feels somewhat constipated and will add laxatives and stool softeners as needed. Encouraged oral intake and continued incentive spirometer use at least 10 times every hour while awake. Chest x-ray shows consistent with possible COPD and chronic interstitial lung disease with possible reactive airway disease with no focal airspace opacification or pleural effusion or pneumothorax noted. Will add albuterol inhaler recommend repeat labs in the a.m. We will continue to follow with orthopedics during hospitalization. Thank you for this consultation. The impression and plan of care has been dictated by Nicolle Forrest, nurse practitioner as directed. Dr. Milena MD I have performed a history and examination and MDM of this patient, discussed the same with the dictator, and agree with the dictator's assessment and plan as written ,documented as a scribe. Based on total visit time, I have performed more than 50% of the visit. Any additional findings or plans will be noted. Objective - Vital Signs Vital signs: Vital Signs Temp 99.8 F H 12/23/21 08:00 Pulse 84 12/23/21 08:00 Resp 17 12/23/21 02:00 BP 111/68 12/23/21 08:00 Pulse Ox 93 L 12/23/21 08:00 FiO2 Intake & Output 12/22/21 12/23/21 12/23/21 18:59 06:59 18:59 Output Total 1000 Balance -1000 Output: Urine 1000 Other: Voiding Method Toilet # Voids 1 1 1 - Labs CBC & Chem 7: 12/22/21 05:50
[2021-12-23] MEDS ORDERED: ALBUTEROL NEBULIZED 2.5 MG/3 ML INHALATION SCH (20:00)
[2021-12-23] MEDS: SENNOSIDES-DOCUSATE SODIUM 1 EACH TAB PO SCH (20:43)
[2021-12-24] MEDS: ACETAMINOPHEN TAB 500 MG TAB PO SCH ×3 (01:11→11:31)
[2021-12-24 07:48] VITALS: RESP 18
[2021-12-24] MEDS: ALBUTEROL NEBULIZED 2.5 MG/3 ML INHALATION SCH ×2 (08:00→11:31)
--- NOTE | 2021-12-24 08:38 | P.DS ---
Providers Expected date of discharge: 12/24/21 Attending physician: Rodrigo Deshpande Consults: 12/21/21 10:57 Consult Physician Routine Consulting Provider: Raheel Barton Consult Reason/Comments: medical management Do you want consulting provider notified?: Yes Primary care physician: Raheel Barton - Discharge Diagnosis(es) (1) Osteoarthritis of left hip Status: Acute (2) S/P total left hip arthroplasty Status: Acute Hospital Course: This is a 76-year-old female with known history of degenerative arthritis of the left hip. The patient presents for evaluation. After discussion and consideration patient elects to proceed with total hip arthroplasty with direct anterior approach. The patient is seen preoperatively by primary care physician and cleared for surgery. Patient is admitted to [facility] on 12/21/2021 for total hip arthroplasty with direct anterior approach. The procedure is performed without complication or sequelae. The patient is doing well postoperatively. Labs and vital signs are stable on day of discharge. The patient did run a slight temperature on postoperative day 2. Chest x-ray shows no acute process. Urinalysis shows findings suspicious for possible UTI. On day of discharge patient's hip incision is healing well. There is minimal erythema. There is no drainage noted at this time. There is minimal soft tissue swelling to the hip and thigh. Patient has full foot and ankle motion without difficulty or pain. Neurovascular status to the lower extremity is intact. Patient is discharged to home in good condition pending medical clearance for discharge. Please see med rec for accurate list of home medications. Patient Condition at Discharge: Good Plan - Discharge Summary Discharge Rx Participant: Yes New Discharge Prescriptions: New Aspirin 325 mg PO DAILY 30 Days #60 tab Celecoxib [CeleBREX] 200 mg PO DAILY #30 cap HYDROcodone/APAP 7.5-325MG [[place] 7.5-325] 1 - 2 tab PO Q6HR PRN 7 Days #32 tab PRN Reason: Pain Sennosides-Docusate Sodium [Senokot-S] 1 tab PO BID #60 tablet Ondansetron Odt [Zofran Odt] 4 mg PO Q8HR PRN #14 tab PRN Reason: Nausea Acetaminophen Tab [Tylenol] 500 mg PO Q6HR tab Continue Levothyroxine Sodium [Synthroid] 75 mcg PO DAILY Multivitamins, Thera [Multivitamin (formulary)] 1 tab PO DAILY Zinc 50 mg PO DAILY Ibuprofen [Motrin Ib] 200 - 400 mg PO Q6H PRN PRN Reason: Pain Ferrous Sulfate [Iron (65 MG Elemental)] 325 mg PO DAILY Cholecalciferol [Vitamin D3 (25 Mcg = 1000 Iu)] 25 mcg PO DAILY Ascorbic Acid [Vitamin C] 500 mg PO DAILY Timolol 0.5% Ophth Soln [Timoptic 0.5% Ophth Soln] 1 drop RIGHT EYE DAILY Discontinued Naproxen Sodium [Aleve] 220 mg PO BID PRN PRN Reason: Pain Discharge Medication List Ascorbic Acid [Vitamin C] 500 mg PO DAILY 12/15/21 [History] Cholecalciferol [Vitamin D3 (25 Mcg = 1000 Iu)] 25 mcg PO DAILY 12/15/21 [History] Ferrous Sulfate [Iron (65 MG Elemental)] 325 mg PO DAILY 12/15/21 [History] Ibuprofen [Motrin Ib] 200 - 400 mg PO Q6H PRN 12/15/21 [History] Levothyroxine Sodium [Synthroid] 75 mcg PO DAILY 12/15/21 [History] Multivitamins, Thera [Multivitamin (formulary)] 1 tab PO DAILY 12/15/21 [History] Timolol 0.5% Ophth Soln [Timoptic 0.5% Ophth Soln] 1 drop RIGHT EYE DAILY 12/15/21 [History] Zinc 50 mg PO DAILY 12/15/21 [History] Aspirin 325 mg PO DAILY 30 Days #60 tab 12/21/21 [Rx] Celecoxib [CeleBREX] 200 mg PO DAILY #30 cap 12/21/21 [Rx] HYDROcodone/APAP 7.5-325MG [[place] 7.5-325] 1 - 2 tab PO Q6HR PRN 7 Days #32 tab 12/21/21 [Rx] Ondansetron Odt [Zofran Odt] 4 mg PO Q8HR PRN #14 tab 12/21/21 [Rx] Sennosides-Docusate Sodium [Senokot-S] 1 tab PO BID #60 tablet 12/21/21 [Rx] Acetaminophen Tab [Tylenol] 500 mg PO Q6HR tab 12/23/21 [Rx] Follow up Appointment(s)/Referral(s): Raheel Barton MD [Primary Care Provider] - 1 Week [facility], [NON-STAFF] - As Needed ([facility] will call you to schedule your in home physical therapy visits. ) Rodrigo Deshpande DO [Doctor of Osteopathic Medicine] - 01/01/22 9:50 am Patient Instructions/Handouts: Hip Arthroscopy (DC) Activity/Diet/Wound Care/Special Instructions: Weight bear as tolerated on operative extremity with a walker. Keep operative dressing intact for 7 days. May shower over dressing. Take pain medications as prescribed. Take aspirin 325mg BID x 4 weeks for blood clot prevention. Follow-up in the office with Dr. Deshpande in two weeks. Call the office with any questions or concerns, Discharge Disposition: HOME WITH HOME HEALTH SERVICES
[2021-12-24 10:47] LABS: Basophils # (A) 0.05 X 10*3/uL (0.00-0.10); Basophils % (A) 0.7 %; Eosinophils # (A) 0.24 X 10*3/uL (0.04-0.35); Eosinophils % (A) 3.4 %; HCT 35.2 % (37.2-46.3); HGB 11.3 g/dL (12.0-15.0); Immature Grans, Automated 0.3 %; Lymphocytes # (A) 1.34 X 10*3/uL (0.90-5.00); Lymphocytes % (A) 18.9 %; MCH 29.2 pg (27.0-32.0); MCHC 32.1 g/dL (32.0-37.0); Mean Platelet Volume 9.9 fL (9.5-12.2); Monocytes # (A) 0.48 X 10*3/uL (0.20-1.00); Monocytes % (A) 6.8 %; NRBC Per 100 WBC 0 /100 WBCS (0.0-0.0); Neutrophils # (A) 4.95 X 10*3/uL (1.80-7.70); Neutrophils % (A) 69.9 %; Platelet Count 238 X 10*3/uL (140-440); RBC 3.87 X 10*6/uL (4.10-5.20); RDW 12.8 % (11.5-14.5); WBC 7.08 X 10*3/uL (4.50-10.00)
[2021-12-24] MEDS: LEVOTHYROXINE 75 MCG TAB PO SCH (10:58)
[2021-12-24] MEDS: ZINC SULFATE 220 MG CAP PO SCH (10:58)
[2021-12-24] MEDS: ASPIRIN 325 MG TAB PO SCH (10:58)
[2021-12-24] MEDS: ASCORBIC ACID 500 MG TAB PO SCH (10:58)
[2021-12-24] MEDS: FERROUS SULFATE 325 MG TAB PO SCH (10:59)
[2021-12-24] MEDS: MULTIVITAMINS, THERA 1 EACH TAB PO SCH (10:59)
[2021-12-24] MEDS: CHOLECALCIFEROL 25 MCG (1000 IU) TABLET PO SCH (10:59)
[2021-12-24] MEDS: TIMOLOL 0.5% OPHTH DROPS 5 ML BTL RIGHT EYE SCH (11:02)
[2021-12-24] MEDS ORDERED: ALBUTEROL NEBULIZED 2.5 MG/3 ML INHALATION PRN (12:57)
[2021-12-24] MEDS ORDERED: ALBUTEROL HFA INHALER INHALATION PRN (13:10)
[2021-12-24 14:21] VITALS: BP 132/56; PULSE 86; TEMP 98
--- NOTE | 2021-12-25 02:48 | P.PN ---
Subjective Progress Note Date: 12/24/21 - Reason for Consult Consult date: 12/22/21 Medical management postoperative left hip arthroplasty - History of Present Illness This is a pleasant 76-year-old female who was recently admitted under orthopedic services and underwent left hip arthroplasty anterior approach postoperative day 1 and has been up and working with physical therapy. Patient feeling a little nauseated most likely a component of narcotic pain medications and will adjust. Patient follows with Dr. Barton in the outpatient setting for osteoarthritis and hypothyroidism and takes Synthroid daily. Vital signs are stable. Patient had a CBC done today which showed a WBC of 7.91 and hemoglobin is 11.1 and platelets are 216. Patient is afebrile and denies chest pain or shortness of breath. Patient has incentive spirometer at the bedside and encourage the patient to continue using at least 10 times every hour while awake. Encouraged increase activity as tolerated and continue with restrictions per orthopedics. Surgical site is dry with minimal swelling and no surrounding redness noted of the left hip. 12/23/2021 Patient is seen and evaluated in follow-up this morning continues to have some mild abdominal discomfort and feels constipated. Patient was started on Senokot and have ordered a suppository and laxative as needed. Encourage the patient to increase activity as tolerated and also encouraged the patient to continue with oral intake. Patient reports she is passing gas and there is positive bowel sounds noted on exam. Patient is afebrile denies any chest pain or shortness of breath. Patient continues to have some pain in the left hip. Patient also with low-grade temps throughout the night and will obtain urinalysis and a chest x- ray. Encouraged incentive spirometer use at least 10 times every hour while awake. Patient denies nausea or vomiting and is tolerating diet. Patient denies chest pain or palpitations at this time along with also denying any shortness of breath. Review of systems: Constitutional: No reports of fatigue, fever, or chills Cardiovascular: No reports of chest pain or palpitations Respiratory: No reports of shortness of breath or cough GI: No reports of nausea, vomiting, or diarrhea, reports passing gas but no bowel movement and feels constipated : No reports of dysuria or retention Neurovascular: No reports of weakness or numbness, reports left hip pain All medications have been reviewed 12/24/2021 Patient is seen this morning and reports to being discharged today by orthopedics. Patient has remained afebrile for 24 hours and denies chest pain or shortness of breath. UA was mildly positive although most likely asymptomatic bacteuria. Patient given an albuterol inhaler as needed and reports to not feeling short of breath. Patient reports to quitting tobacco 7 years ago. Patient also reports she had 2 bowel movements yesterday. Recommend yogesh wraps to lower extremities as patient reports some mild discomfort with the compression stocking especially at night. Instructed the patient to elevate lower extremities while at rest and avoid wearing them at night. PHYSICAL EXAMINATION: GENERAL: The patient is alert and oriented x4, Well developed, well nourished. Obese. HEENT: Pupils are round and equally reacting to light. EOMI. no scleral icterus. No conjunctival pallor. Normocephalic, atraumatic. No pharyngeal erythema. No thyromegaly. CARDIOVASCULAR: S1 and S2 muffled PULMONARY: diminished breath sounds bilaterally with no wheezing or rhonchi noted. ABDOMEN: soft. Nontender on exam. obese. non-distended, normoactive bowel sounds. No palpable organomegaly. MUSCULOSKELETAL: No joint swelling or deformity. EXTREMITIES: No cyanosis, clubbing, or pedal edema. Left hip surgical dressing is dry with no surrounding redness and minimal swelling noted NEUROLOGICAL: Gross neurological examination did not reveal any focal deficits. SKIN: No rashes. Assessment: Status post left total hip arthroplasty Fevers, unknown etiology, resolved possible urinary tract infection, although suspicion is low most likely asymptomatic bacteuria Osteoarthritis Hypothyroidism Obesity with a BMI of 30.3 GI prophylaxis DVT prophylaxis Full code Plan: Recommend to continue with current medications and management per orthopedic services. Patient is postop status post left direct anterior total hip arthroplasty with Dr. Deshpande and has worked with physical therapy. Patient no longer having temps and denies shortness of breath. Albuterol inhaler PRN. encouraged incentive spirometer use and increased activity as tolerated. UA was done and cultures are negative. Will give empiric Ceftin 500mg bid for 3 days on discharge. Patient reports to having bowel movements yesterday evening. Encouraged oral intake and continued incentive spirometer use at least 10 times every hour while awake. Encouraged the patient to follow up with pcp Dr. Barton on discharge. We will continue to follow with orthopedics during hospitalization. Thank you for this consultation. The impression and plan of care has been dictated by Nicolle Forrest, nurse practitioner as directed. Dr. Milena MD I have performed a history and examination and MDM of this patient, discussed the same with the dictator, and agree with the dictator's assessment and plan as written ,documented as a scribe. Based on total visit time, I have performed more than 50% of the visit. Any additional findings or plans will be noted. Objective - Vital Signs Vital signs: Vital Signs Temp 98.4 F 12/24/21 07:46 Pulse 76 12/24/21 08:11 Resp 18 12/24/21 07:46 BP 128/70 12/24/21 07:46 Pulse Ox 93 L 12/24/21 00:38 FiO2 Intake & Output 12/23/21 12/24/21 12/24/21 18:59 06:59 18:59 Other: Voiding Method Toilet # Voids 3 4 # Bowel Movements 2 - Labs CBC & Chem 7: 12/24/21 07:33 Labs: Abnormal Lab Results - Last 24 Hours (Table) 12/23/21 Range/Units 13:14 Urine Appearance Cloudy H (Clear) Urine Protein 1+ H (Negative) Urine Ketones Trace H (Negative) Ur Leukocyte Esterase Moderate H (Negative) Urine WBC 12 H (0-5) /hpf Ur Squamous Epith Cells 6 H (0-4) /hpf Urine Mucus Moderate H (None) /hpf Microbiology - Last 24 Hours (Table) 12/23/21 13:14 Urine Culture - Preliminary Urine,Voided
== END 2021-12-24 14:20 | disposition home health service (06) ==
LOC: OR 07:16 → 4SSUR 10:53 → OR 12-24 14:20
PROVIDERS: ATTEND Orthopaedic Surgery
DX: M16.12 Unilateral primary osteoarthritis, left hip (principal); K59.00 Constipation, unspecified; E03.9 Hypothyroidism, unspecified; I10 Essential (primary) hypertension; H40.9 Unspecified glaucoma; I25.2 Old myocardial infarction; I73.9 Peripheral vascular disease, unspecified; J44.9 Chronic obstructive pulmonary disease, unspecified; M54.30 Sciatica, unspecified side; M51.36 Other intervertebral disc degeneration, lumbar region; M81.0 Age-related osteoporosis without current pathological fracture; M85.80 Other specified disorders of bone density and structure, unspecified site; E66.9 Obesity, unspecified; Z68.30 Body mass index [BMI] 30.0-30.9, adult; Z79.890 Hormone replacement therapy; Z88.5 Allergy status to narcotic agent; Z87.891 Personal history of nicotine dependence; Z90.49 Acquired absence of other specified parts of digestive tract; Z98.890 Other specified postprocedural states
CPT/HCPCS: 94640; 97116; 97161; 97530; 97535; 97166; 85025 ×2; 88300; 73501; 27130; C1776; J2250; J0690 ×3; J2405; J3010; J2795; J2704; J1170 ×2; 86850; 86900; 86901

== ENCOUNTER → 2022-01-05 | Outpatient (CLI) | payer MEDICARE, BC ==
--- NOTE | 2022-01-05 15:08 | US ---
EXAMINATION TYPE: US venous doppler duplex LE BI DATE OF EXAM: 01/05/2022 2:49 PM COMPARISON: NONE CLINICAL HISTORY: R60.0 LOCALIZED EDEMA. No hx of DVT. Swelling. Left hip replacement 12/21/21. SIDE PERFORMED: Bilateral TECHNIQUE: The lower extremity deep venous system is examined utilizing real time linear array sonog barney with graded compression, doppler sonography and color-flow sonography. VESSELS IMAGED: Common Femoral Vein Deep Femoral Vein Greater Saphenous Vein * Femoral Vein Popliteal Vein Small Saphenous Vein * Proximal Calf Veins (* superficial vessels) Exam is limited due to body habitus and edema. Right Leg: No evidence of DVT in veins imaged. Left Leg: No evidence of DVT in veins imaged. IMPRESSION: No evidence for DVT at this time.
== END | disposition home or self-care (01) ==
LOC: RADUSWWP 14:02
PROVIDERS: ATTEND Family Medicine
DX: R60.0 Localized edema (principal); Z96.642 Presence of left artificial hip joint
CPT/HCPCS: 93970

== ENCOUNTER → 2022-11-15 | Outpatient (CLI) | payer MEDICARE, BC ==
[2022-11-15 16:44] LABS: Basophils # (A) 0.08 X 10*3/uL (0.00-0.10); Basophils % (A) 1.2 %; Eosinophils % (A) 3.1 %; HCT 39.3 % (37.2-46.3); Lymphocytes # (A) 1.86 X 10*3/uL (0.90-5.00); Lymphocytes % (A) 28.6 %; MCH 29.7 pg (27.0-32.0); MCHC 33.1 d/dL (32.0-37.0); MCV 89.9 FL (80.0-97.0); Mean Platelet Volume 9.7 FL (9.5-12.2); Monocytes # (A) 0.55 X 10*3/uL (0.20-1.00); Monocytes % (A) 8.5 %; NRBC Per 100 WBC 0 X 10*3/uL (0.00-0.01); Neutrophils # (A) 3.79 X 10*3/uL (1.80-7.70); Neutrophils % (A) 58.3 %; Platelet Count 234 X 10*3/uL (140-440); RBC 4.37 X 10*6/uL (4.10-5.20); RDW 12.9 % (11.5-14.5)
[2022-11-15 16:58] LABS: ALT 19 U/L (8-44); AST 20 U/L (13-35); Albumin 4.6 d/dL (3.8-4.9); Alkaline Phosphatase 108 U/L (41-126); BUN/Creat Ratio 21.75 Ratio (12.00-20.00); Blood Urea Nitrogen 17.4 mg/dL (9.0-27.0); Calcium 9.6 mg/dL (8.7-10.3); Carbon Dioxide 26.5 mmol/L (21.6-31.8); Chloride 102 mmol/L (96-109); Chol/HDL Ratio 2.09 Ratio; Globulin 2.7 d/dL (1.6-3.3); Glucose 101 mg/dL (70-110); LDL Cholesterol,Calculated 56.7 mg/dL (0.0-131.0); Potassium 4.2 mmol/L (3.5-5.5); Sodium 140 mmol/L (135-145); T4, Free (Free Thyroxine) 1.15 ng/dL (0.80-1.80); Total Bilirubin 0.9 mg/dL (0.3-1.2); Total Protein 7.3 d/dL (6.2-8.2)
== END | disposition home or self-care (01) ==
LOC: LABWHC1 10:56
PROVIDERS: ATTEND Family Medicine
DX: E03.9 Hypothyroidism, unspecified (principal)
CPT/HCPCS: 36415; 80053; 80061; 84439; 84443; 85025

== ENCOUNTER → 2023-12-06 | Outpatient (CLI) | payer MEDICARE, BC ==
--- NOTE | 2023-12-06 16:01 | BD ---
EXAMINATION TYPE: Axial Bone Density DATE OF EXAM: 12/06/2023 CLINICAL HISTORY: 78 years old Female. ICD-10 CODE: Z78.0 ASYM MENOPAUSAL STATE Height: 66 Weight: 185 FRAX RISK QUESTIONS: Family History (Parent hip fracture): no History of Fracture in Adulthood: yes Secondary Osteoporosis: no RISK FACTORS HISTORY OF: Surgery to Spine tailbone for spur/Hip(left): yes When: MEDICATIONS: Thyroid Medications: yes Which medication: Levothyroxine How Lon+ years Osteoporosis Medications: no EXAM MEASUREMENTS: Bone mineral densitometry was performed using the [employer] System. Bone mineral density as measured about the Lumbar spine is: ----- L1-L4(G/cm2): 1.069 T Score Values are as follows: ----- L1: -1.4 ----- L2: -1.3 ----- L3: -1.0 ----- L4: -0.3 ----- L1-L4: -0.9 Z Score Values are as follows: ----- L1: -0.2 ----- L2: -0.1 ----- L3: 0.2 ----- L4: 0.9 ----- L1-L4: 0.3 Bone mineral density has: Increased 2.3% since study of: 12/14/2018 Bone mineral density about the R hip (g/cm2): 0.904 T Score values are as follows: -----R Neck: -0.7 -----R Total: -0.8 Z Score values are as follows: -----R Neck: 0.9 -----R Total: 0.7 Bone mineral density has: Decreased -1.1% since study of: 12/02/2021 FRAX%s: The graph provided illustrates a 15.1% chance for a major osteoporotic fx and a 2.2% chance f or the hips probability for fx in 10 years time. IMPRESSION: Normal (Values between +1 and -1 indicate normal bone mass). Consider repeating this study in 5 year s or sooner if there is some new clinical indication. NOTE: T-SCORE=SD OF THE YOUNG ADULT MEAN.
--- NOTE | 2023-12-08 10:14 | MM ---
Reason for Exam: Screening (asymptomatic). Last mammogram was performed 2 year(s) and 0 month(s) ago. Patient History: Menarche at age 12. First Full-Term at age 21. Postmenopausal. Estrogen for 5 years from age 55 until age 60. Progesterone for 5 years from age 55 until age 60. 2014, Benign Excisional Biopsy on the right side. Risk Values: Reba 5 year model risk: 1.8%. NCI Lifetime model risk: 3.3%. Prior Study Comparison: 10/28/2016 Screening Mammogram, [facility]. 11/02/2017 Bilateral Diagnostic Mammogram, [facility]. 12/02/2021 Bilateral MG 3D screening mammo w/cad, [facility]. Tissue Density: The breasts are heterogeneously dense, which may obscure small masses. Findings: Analyzed By CAD. The pattern is symmetrical. There is a focal density measuring 1.3 x 3.0 cm upper outer posterior right breast 11:00 position located 5 cm nipple. This appears stable. Vascular calcifications present bilaterally. Benign round calcifications are bilateral. No suspicious groups of microcalcifications, spiculated or lobular masses, architectural distortion or other secondary signs of malignancy are mammographically apparent. Overall Assessment: Benign, BI-RAD 2 Management: Screening Mammogram of both breasts in 1 year. A negative mammogram report should not preclude additional follow up of suspicious palpable abnormalities. Patient should continue monthly self breast exam. A clinical breast exam by your physician is recommended on an annual basis and results should be correlated with mammographic findings. Note on Reba scores and lifetime risk: 1. A Reba score greater than 3% is considered moderate risk. If this is the case, consider specialist referral to assess eligibility for a risk reducing agent. 2. If overall lifetime risk for the development of breast cancer is 20% or higher, the patient may qualify for future screening with alternating mammogram and breast MRI. Electronically signed and approved by: Renaldo Arteaga D.O. Radiologis
== END | disposition home or self-care (01) ==
LOC: RADMAMWWP 12:35
PROVIDERS: ATTEND Family Medicine
DX: Z12.31 Encounter for screening mammogram for malignant neoplasm of breast (principal); Z78.0 Asymptomatic menopausal state
CPT/HCPCS: 77063; 77067; 77080